=== PATIENT | male | born 1960 | race Caucasian/White ===

== ENCOUNTER 2018-08-20 12:18 | Emergency (ER) | payer MEDICAID ==
[~2018-08-20] VITALS: Ht 177.8 cm; Wt 68.0 kg
[2018-08-20 12:35] VITALS: Ht 177.8 cm; Wt 68.0 kg
[2018-08-20 13:10] VITALS: BP 142/93
== END 2018-08-20 13:10 | disposition home or self-care (01) ==
LOC: ED 12:18
DX: T40.601A Poisoning by unspecified narcotics, accidental (unintentional), initial encounter (principal); I10 Essential (primary) hypertension; Y92.89 Other specified places as the place of occurrence of the external cause